=== PATIENT | male | born 1980 | race Caucasian/White ===

== ENCOUNTER 2016-11-30 09:41 | Emergency (ER) | payer MEDICAID ==
[~2016-11-30] VITALS: Ht 175.3 cm; Wt 86.2 kg
[~2016-11-30 09:41] MED LIST: ASPIRIN ADULT L81 M3 PO; FOLIC ACID0.8 M2 PO; PROPANOLOL PO; VITAMIN D2 PO; ZES10 PO
[2016-11-30 12:17] VITALS: BP 152/99
== END 2016-11-30 12:17 | disposition home or self-care (01) ==
LOC: ED 09:41
DX: T25.222A Burn of second degree of left foot, initial encounter (principal); I10 Essential (primary) hypertension; T31.0 Burns involving less than 10% of body surface; X12.XXXA Contact with other hot fluids, initial encounter; Y93.89 Activity, other specified; Y92.89 Other specified places as the place of occurrence of the external cause; Y99.8 Other external cause status
CPT/HCPCS: J1885

== ENCOUNTER 2018-02-23 11:16 | Emergency (ER) | payer MEDICAID ==
[~2018-02-23] VITALS: Ht 175.3 cm; Wt 71.7 kg
[2018-02-23 11:37] VITALS: BP 150/85; Ht 175.3 cm; Wt 71.7 kg
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
[2018-02-23 13:35] LABS: RED CELL DISTRIBUTION WIDTH 13.7 % (11.5-14.5)
[2018-02-23 13:36] LABS: PLATELET COUNT 112 x10^3mcL (130-400)
[2018-02-23 13:49] LABS: ATYPICAL LYMPH 5 %; BAND NEUTROPHIL 4 % (0-10); BASOPHIL 0 % (0-2); MONOCYTE 4 % (0-7); SEGMENTED NEUTROPHILS 83 % (37-75)
[2018-02-23 13:51] LABS: PLATELET MORPHOLOGY PLATELETS DECREASED; rbc morphology (normal/abnorm) ABNORMAL (NORMAL)
--- NOTE | 2018-02-23 13:51 | NUR ---
IV ANBX INFUSING ORDERED, WILL CONT TO MONITOR.
[2018-02-23 14:05] LABS: ALBUMIN 3.8 g/dL (3.4-5.0); ALKALINE PHOSPHATASE 126 U/L (46-116); ALT/SGPT 118 U/L (16-63); AST/SGOT 56 U/L (15-37); BILIRUBIN TOTAL 3.02 mg/dL (0.20-1.00); CALCIUM 9.3 mg/dL (8.5-10.1); CARBON DIOXIDE 30.2 mmol/L (21-32); CHLORIDE SERUM 93 mmol/L (98-107); CREATININE SERUM 0.7 mg/dL (0.7-1.3); GFR1 > 60 mL/min; GLUCOSE SERUM 108 mg/dL (74-106); SODIUM SERUM 131 mmol/L (136-145)
[2018-02-23 14:15] LABS: TOTAL PROTEIN, SERUM 9.3 g/dL (6.4-8.2)
[2018-02-23 14:16] LABS: POTASSIUM SERUM 2.9 mmol/L (3.5-5.1)
== END 2018-02-23 14:50 | disposition left against medical advice (07) ==
LOC: ED 11:16 → MU 14:18 → ED 14:18
PROVIDERS: Emergency Medicine
DX: L03.114 Cellulitis of left upper limb (principal); I10 Essential (primary) hypertension; E78.00 Pure hypercholesterolemia, unspecified; W50.3XXA Accidental bite by another person, initial encounter; Y93.89 Activity, other specified; Y92.89 Other specified places as the place of occurrence of the external cause; Y99.8 Other external cause status
CPT/HCPCS: 90715; J1885; J2405; J3490; Q0092

== ENCOUNTER 2018-06-10 05:35 | Emergency (ER) | payer MEDICAID ==
[~2018-06-10] VITALS: Ht 172.7 cm; Wt 72.6 kg
[2018-06-10 05:43] VITALS: Ht 172.7 cm; Wt 72.6 kg
[2018-06-10 08:10] VITALS: BP 147/89
== END 2018-06-10 08:10 | disposition home or self-care (01) ==
LOC: ED 05:35
DX: S41.111A Laceration without foreign body of right upper arm, initial encounter (principal); I10 Essential (primary) hypertension; K74.60 Unspecified cirrhosis of liver; Z90.89 Acquired absence of other organs; W22.8XXA Striking against or struck by other objects, initial encounter; Y93.89 Activity, other specified; Y92.89 Other specified places as the place of occurrence of the external cause; Y99.8 Other external cause status
CPT/HCPCS: J2001

== ENCOUNTER 2018-06-21 11:14 | Emergency (ER) | payer MEDICAID | END 2018-06-21 13:58 | disposition home or self-care (01) | LOC: ED 11:14 ==